=== PATIENT | female | born 1995 ===

== ENCOUNTER 2017-11-22 20:14 | Emergency (ER) | payer MEDICAID ==
[2017-11-22 20:30] VITALS: O2SAT 100
[2017-11-23 02:45] VITALS: BP 92/51; PULSE 88; RESP 17; TEMP 98
== END 2017-11-22 22:44 | disposition home or self-care (01) ==
LOC: H.EROB2 20:14
DX: O26.92 Pregnancy related conditions, unspecified, second trimester (principal); R07.9 Chest pain, unspecified; R10.2 Pelvic and perineal pain; L03.031 Cellulitis of right toe